=== PATIENT | male | born 1980 | race Caucasian/White ===

== ENCOUNTER 2022-03-11 15:09 | Inpatient (IN) ==
[2022-03-11] MEDS ORDERED: Lactated Ringers 1000 ml BAG 1,000 ML IV ONE (15:18)
[2022-03-11 15:40] LABS: ABS Basophils 0.1 10^3/ul (0-0.2); ABS Lymphocytes 1.7 10^3/ul (1.0-4.8); ABS Monocytes 1.5 10^3/ul (0-0.8); Eosinophil % 0.3 %; Hematocrit 42 % (42-52); Hemoglobin 14.1 g/dL (14.0-18.0); Mean Corpuscular HGB Conc 33 g/dL (31-36); Mean Corpuscular Hemoglobin 30 pg (27-31); Mean Corpuscular Volume 91 fL (80-94); Mean Platelet Volume 10.1 fL (7.4-10.4); Platelet Count 267 10^3/uL (150-450); Red Blood Count 4.65 10^6 /uL (4.18-5.48); Red Cell Distribution Width 13 % (10-15); White Blood Count 11.2 10^3/uL (3.5-10.8)
[2022-03-11 16:00] LABS: High Sens Troponin Baseline 176 pg/mL (<20)
[2022-03-11 16:34] LABS: ALT 37 U/L (7-52); AST 24 U/L (13-39); Albumin 3.8 g/dL (3.2-5.2); Albumin/Globulin Ratio 1.7 (1-3); Alcohol, S < 13 mg/dL (<13); Alkaline Phosphatase 53 U/L (35-149); Anion Gap 10 mmol/L (2-11); Blood Urea Nitrogen 18 mg/dL (6-24); CO2 Carbon Dioxide 19 mmol/L (22-32); Calcium 9.2 mg/dL (8.6-10.3); Chloride 104 mmol/L (101-111); Globulin 2.3 g/dL (2-4); Glucose 129 mg/dL (70-100); Magnesium 1.9 mg/dL (1.9-2.7); Potassium 4.8 mmol/L (3.5-5.0); Sodium 133 mmol/L (135-145); Total Protein 6.1 g/dL (6.4-8.9); eGFR CKD-EPI 76.2 (>60)
[2022-03-11 16:38] LABS: TSH Ultra Thyroid Stim Horm 3.27 mcIU/mL (0.34-5.60)
[2022-03-11] MEDS ORDERED: Iohexol 350 (CONTRAST) 500 ML MDV IV ONE (16:47)
[2022-03-11 17:11] LABS: High Sensitivity Troponin 1 Hr 169 pg/mL (<20)
[2022-03-11] MEDS ORDERED: Heparin DRIP 25,000 UNITS BAG 25,000 UNITS/500 ML BAG IV SCH (18:45)
[2022-03-11] MEDS ORDERED: Remdesivir 100 mg Vial 200 MG in NS 0.9% 250 ml 210 ML IV ONE (18:52)
[2022-03-11] MEDS: Aspirin EC 81 mg TAB.EC (enteric coated) PO SCH (19:29)
[2022-03-11 19:33] LABS: ABS Lymphocytes 1.6 10^3/ul (1.0-4.8); ABS Monocytes 1.3 10^3/ul (0-0.8); ABS Neutrophils 8.4 10^3/ul (1.5-7.7); Eosinophil % 0.1 %; Hematocrit 41 % (42-52); Hemoglobin 13.6 g/dL (14.0-18.0); Lymphocyte % 13.8 %; Mean Corpuscular HGB Conc 33 g/dL (31-36); Mean Corpuscular Hemoglobin 31 pg (27-31); Mean Corpuscular Volume 92 fL (80-94); Mean Platelet Volume 10.1 fL (7.4-10.4); Platelet Count 234 10^3/uL (150-450); Red Blood Count 4.41 10^6 /uL (4.18-5.48); Red Cell Distribution Width 13 % (10-15); White Blood Count 11.3 10^3/uL (3.5-10.8)
[2022-03-11] MEDS: Heparin 5000 UNITS/ML 1 mL VIAL IV SCH (19:37)
[2022-03-11 19:42] LABS: INR 1.45 (0.86-1.15)
[2022-03-11 20:16] LABS: Albumin 3.9 g/dL (3.2-5.2); Albumin/Globulin Ratio 1.9 (1-3); Calcium 9.1 mg/dL (8.6-10.3); Globulin 2.1 g/dL (2-4); Total Bilirubin 1.1 mg/dL (0.2-1.0); eGFR CKD-EPI 72.6 (>60)
[2022-03-11 20:41] LABS: Potassium 5.2 mmol/L (3.5-5.0)
[2022-03-11] MEDS ORDERED: Droperidol 5 MG/2 ML 2 ML VIAL IV ONE (23:48)
[2022-03-11] MEDS ORDERED: Trimethobenzamide *IM* 100 mg/ml 2 ml VIAL (200 mg) IM ONE (23:52)
[2022-03-12 06:11] LABS: Hematocrit 41 % (42-52); Hemoglobin 14.2 g/dL (14.0-18.0); Mean Corpuscular HGB Conc 34 g/dL (31-36); Mean Corpuscular Hemoglobin 31 pg (27-31); Mean Corpuscular Volume 92 fL (80-94); Mean Platelet Volume 10.6 fL (7.4-10.4); Platelet Count 226 10^3/uL (150-450); Red Blood Count 4.51 10^6 /uL (4.18-5.48); Red Cell Distribution Width 13 % (10-15); White Blood Count 13.1 10^3/uL (3.5-10.8)
[2022-03-12 06:14] LABS: ABS Lymphocytes 2.1 10^3/ul (1.0-4.8); ABS Monocytes 1.7 10^3/ul (0-0.8); ABS Neutrophils 9.3 10^3/ul (1.5-7.7); Eosinophil % 0.1 %; Lymphocyte % 15.9 %
[2022-03-12 06:17] LABS: INR 1.48 (0.86-1.15)
[2022-03-12 06:55] LABS: Albumin/Globulin Ratio 1.9 (1-3); Calcium 9.2 mg/dL (8.6-10.3); Globulin 2.1 g/dL (2-4); HDL Cholesterol 30.2 mg/dL; Potassium 5.1 mmol/L (3.5-5.0); Total Bilirubin 1.1 mg/dL (0.2-1.0); Total Protein 6.1 g/dL (6.4-8.9); eGFR CKD-EPI 66.8 (>60)
[2022-03-12 07:40] LABS: PCO2 Arterial 26 mmHg (35-45); PO2 Arterial 71 mmHg (80-100)
[2022-03-12] MEDS ORDERED: Digoxin IV 0.5 MG/2 ML AMP (0.25 MG/ML) IV SLOW PU ONE ×2 (07:51→10:59)
[2022-03-12] MEDS ORDERED: Digoxin IV 0.5 MG/2 ML AMP (0.25 MG/ML) ONE (07:56)
[2022-03-12] MEDS: Aspirin EC 81 mg TAB.EC (enteric coated) PO SCH (08:24)
[2022-03-12 08:52] LABS: Urine Benzodiazepine Screen None Detected (None Detect); Urine Cannabinoids Screen None Detected (None Detect); Urine Opiates Screen None Detected (None Detect)
[2022-03-12] MEDS ORDERED: Metoprolol Tartrate 5 mg VIAL 5 ml VIAL (1 mg/ml) IV ONE (09:11)
[2022-03-12] MEDS ORDERED: LORazepam 2 mg VIAL 1 ml IV PUSH ONE (10:04)
[2022-03-12] MEDS ORDERED: Lorazepam PYXIS KEY PRN (10:04)
[2022-03-12] MEDS: Heparin 5000 UNITS/ML 1 mL VIAL IV SCH (10:08)
[2022-03-12 11:39] VITALS: BP 107/75
[2022-03-12 11:51] LABS: Magnesium 1.8 mg/dL (1.9-2.7)
[2022-03-12] MEDS ORDERED: Magnesium Sulfate 2 gm BAG 2 GM/50 ML BAG ONE (12:06)
[2022-03-12] MEDS ORDERED: Magnesium Sulfate 2 gm BAG 2 GM/50 ML BAG IVPB ONE (12:07)
[2022-03-12] MEDS ORDERED: Remdesivir 100 mg Vial 100 MG in NS 0.9% 250 ml 230 ML IV SCH (21:00)
== END 2022-03-12 12:00 | disposition short-term general hospital (02) | DRG 205 ==
LOC: ED 15:09 → EDHOLD 18:19 → ICU 20:59
PROVIDERS: ADMIT Internal Medicine; ATTEND Internal Medicine